=== PATIENT | female | born 1950 | race American Indian/Alaskan Native ===

== ENCOUNTER 2016-09-10 11:49 | Outpatient (CLI) | payer MEDICARE, OTHER ==
[2016-09-10] MEDS ORDERED: NACL ONE (13:36)
[2016-09-10 13:45] LABS: Blood Urea Nitrogen 22 mg/dL (7-17)
--- NOTE | 2016-09-10 15:08 | Cat Scan Report ---
CT NECK WITH AND WITHOUT CONTRAST: HISTORY: Cervical lymphedema, lymphadenopathy. TECHNIQUE: Helical CT following IV contrast. Sagittal and coronal reformatted images. FINDINGS: The parotid and submandibular glands are normal. The carotid sheaths are intact. There is no evidence of adenopathy within the neck. The thyroid gland is normal. The glottic structures are normal. The airway is patent. Strap musculature is unremarkable. Hyoid bone and thyroid cartilage are intact. Moderate multilevel degenerative disc disease is noted throughout the cervical spine. IMPRESSION: Unremarkable CT neck. No lymphadenopathy or lymphedema is appreciated.
--- NOTE | 2016-09-10 15:10 | Cat Scan Report ---
CT HEAD WITH AND WITHOUT CONTRAST: HISTORY: Cervical lymphedema, lymphadenopathy. Serial contiguous axial images were obtained through the cranium, both before and after the administration of intravenous contrast material. The ventricles are normal in size and appearance. There is no mass effect or midline shift. No areas of abnormally increased or decreased attenuation are seen. No mass lesion is seen. The mastoid air cells and visualized portions of the sinuses are normal. IMPRESSION: Cranial CT scan within normal limits.
== END 2016-09-10 11:50 | disposition home or self-care (01) ==
LOC: CT 11:49
PROVIDERS: ATTEND Internal Medicine
DX: M50.30 Other cervical disc degeneration, unspecified cervical region (principal); R59.0 Localized enlarged lymph nodes; R59.1 Generalized enlarged lymph nodes
CPT/HCPCS: 36415; 70470; 70492; 82565; 84520; Q9967

== ENCOUNTER 2016-12-03 10:02 | Outpatient (CLI) | payer MEDICARE, OTHER ==
--- NOTE | 2016-12-03 10:56 | Mammography Report ---
BONE DENSITY STUDY: Postmenopausal osteoporosis. DEFINITIONS: BMD = Bone Mineral Density T-score = BMD related to mean peak bone mass of young adult (mean expressed in Standard Deviation) Z-score = Age matched BMD expressed in SD World Health Organization (WHO) Diagnostic Criteria Normal T-score > -1 SD Osteopenia T-score between -1 and -2.4 SD Osteoporosis T-score -2.5 SD or below FINDINGS: The weighted average BMD of lumbar spine L1-L4 is 1.026 with a T-score of -0.2. The weighted average BMD of hip is 0.803 with a T-score of -1.1 and. IMPRESSION: The patient's average T-score is diagnostic for osteopenia and average relative risk for fracture. NOTE: BMD is not the only risk factor for fracture; also consider factors such as the patient's age, risk of falling, previous osteoporotic fracture, family history of osteoporotic fractures, current smoker, and low body weight. Green's triangle is a region of interest in femur, predominantly of trabecular bone. It is not a true anatomic site, and [facility] does not recommend its use clinically.
== END 2016-12-03 10:03 | disposition home or self-care (01) ==
LOC: MAMMO 10:02
PROVIDERS: ATTEND Internal Medicine
DX: M85.88 Other specified disorders of bone density and structure, other site (principal); Z78.0 Asymptomatic menopausal state
CPT/HCPCS: 77080

== ENCOUNTER 2017-04-16 07:00 | Outpatient (CLI) | payer MEDICARE, OTHER ==
--- NOTE | 2017-04-16 07:45 | Mammography Report ---
Bilateral mammogram: Compared to the. CAD study utilized. Findings: Predominance adipose tissue bilaterally. No mass or microcalcification. Benign density right breast. Benign calcifications left breast. Impression: Benign findings. Annual followup recommended. BI-RADS CATEGORY: 2 = Benign ACR BI-RADS MAMMOGRAPHIC CODES: 0 = Needs additional imaging evaluation; 1 = Negative; 2 = Benign; 3 = Probably benign; 4 = Suspicious; 5 = Malignant; 6 = Known biopsy-proven malignancy COMMENT: 1. Dense breast tissue, i.e., adenosis, fibrocystic changes, etc., may obscure an underlying neoplasm. 2. Approximately 10% of cancers are not detected with mammography. 3. A negative mammography report should not delay biopsy if a clinically suspicious mass is present. COMMENT: Patient follow-up letters are generated in [employer].
== END 2017-04-16 07:01 | disposition home or self-care (01) ==
LOC: MAMMO 07:00
PROVIDERS: ATTEND Internal Medicine
DX: Z12.31 Encounter for screening mammogram for malignant neoplasm of breast (principal)
CPT/HCPCS: 77067; G0202

== ENCOUNTER 2018-12-15 09:15 | Outpatient (CLI) | payer MEDICARE, OTHER ==
--- NOTE | 2018-12-15 11:09 | XRay Report ---
METASTATIC BONE SURVEY HISTORY: Monoclonal paraproteinemia COMPARISON: None at this facility. FINDINGS: Multiple radiographs of the axial and proximal appendicular skeleton were obtained. Mild osteopenia i s suspected. There is mild scoliosis of the thoracolumbar spine with diffuse degenerative changes. Fu casey of the C4-5 disc space is also noted. No areas of abnormal bony destruction or production are id entified throughout the visualized skeleton. IMPRESSION: No lytic or blastic bony lesions are identified on skeletal survey. Signer Name: Ronald Sanchez Jr, MD Signed: 12/15/2018 11:05 AM Workstation Name: [id number]
--- NOTE | 2018-12-15 11:40 | Mammography Report ---
DEXA BONE DENSITY SCAN INDICATION: Z13.820, postmenopausal female COMPARISON: None available. LUMBAR SPINE (L1-L4): Bone mineral density (BMD) is 0.988 g/cm2. T-score is -0.5 (standard deviations of Young Adult mean). Z-score is 0.9 (standard deviations of Age Matched mean). LEFT FEMORAL NECK: Bone mineral density (BMD) is 0.789 g/cm2. T-score is -1.3 (standard deviations of Young Adult mean). Z-score is -0.4 (standard deviations of Age Matched mean). IMPRESSION: 1. WHO Classification: Osteopenia. Fracture Risk: Increased. Signer Name: Eh Thomason MD Signed: 12/15/2018 11:36 AM Workstation Name: [id number]
== END 2018-12-15 09:16 | disposition home or self-care (01) ==
LOC: MAMMO 09:15
PROVIDERS: ATTEND Internal Medicine Hematology & Oncology
DX: Z13.820 Encounter for screening for osteoporosis (principal); M85.88 Other specified disorders of bone density and structure, other site; M41.85 Other forms of scoliosis, thoracolumbar region; M43.22 Fusion of spine, cervical region; M47.815 Spondylosis without myelopathy or radiculopathy, thoracolumbar region; Z78.0 Asymptomatic menopausal state
CPT/HCPCS: 77074; 77080

== ENCOUNTER 2019-05-03 07:02 | Outpatient (CLI) | payer MEDICARE, OTHER ==
--- NOTE | 2019-05-03 09:01 | Mammography Report ---
DIGITAL SCREENING MAMMOGRAM WITH CAD, 05/03/2019 INDICATION: Routine screening mammography. TECHNIQUE: Digital bilateral 2D mammography was obtained in the craniocaudal and mediolateral obliq ue projections. This examination was interpreted with the benefit of Computer-Aided Detection analysi s. COMPARISON: 04/30/2018 and 04/15/2016 FINDINGS: Breast Density: The breasts are almost entirely fatty. There is no evidence of dominant mass, suspicious calcifications or architectural distortion in eithe r breast. IMPRESSION: No mammographic evidence of malignancy. Follow up recommendation: Routine yearly BI-RADS Category 1: Negative. A "normal" or negative report should not discourage follow up or biopsy of a clinically significant f inding. A written summary of these findings will be mailed to the patient. The patient will be entered into a mammography reporting system which will generate a reminder letter for the patient's next appointmen t at the appropriate interval. The [employer] recommends yearly mammograms starting at age 40 and continuing as l cr as a woman is in good health. Breast MRI is recommended for women with an approximate 20-25% or greater lifetime risk of breast cancer, including women with a strong family history of breast or ova dameon cancer or who have been treated for Hodgkin's disease. Signer Name: Mann Rea MD Signed: 05/03/2019 8:56 AM Workstation Name: [id number]
== END 2019-05-03 07:03 | disposition home or self-care (01) ==
LOC: MAMMO 07:02
PROVIDERS: ATTEND Internal Medicine
DX: Z12.31 Encounter for screening mammogram for malignant neoplasm of breast (principal)
CPT/HCPCS: 77067

== ENCOUNTER 2020-05-04 09:53 | Outpatient (CLI) | payer MEDICARE, OTHER ==
--- NOTE | 2020-05-04 11:17 | Mammography Report ---
DIGITAL SCREENING MAMMOGRAM WITH CAD, 05/04/2020 CLINICAL INFORMATION / INDICATION: Routine screening mammography. SCREENING MAMMOGRAM TECHNIQUE: Digital bilateral 2D mammography was obtained in the craniocaudal and mediolateral obliqu e projections. This examination was interpreted with the benefit of Computer-Aided Detection analysis . COMPARISON: 04/16/2017 through 05/03/2019. FINDINGS: Breast Density: The breasts are almost entirely fatty. No dominant mass, suspicious calcifications, or architectural distortion in either breast. A small benign nodule in the right breast superomedially is stable. There are a few benign calcificat ions bilaterally. No new abnormality is seen. IMPRESSION: No mammographic evidence of malignancy. Follow up recommendation: Routine yearly BI-RADS Category 2: Benign. A "normal" or negative report should not discourage follow up or biopsy of a clinically significant f inding. A written summary of these findings will be mailed to the patient. The patient will be entered into a mammography reporting system which will generate a reminder letter for the patient's next appointmen t at the appropriate interval. The [employer] recommends yearly mammograms starting at age 40 and continuing as l cr as a woman is in good health. Breast MRI is recommended for women with an approximate 20-25% or greater lifetime risk of breast cancer, including women with a strong family history of breast or ova dameon cancer or who have been treated for Hodgkin's disease. Signer Name: Isai Caraballo MD Signed: 05/04/2020 11:12 AM Workstation Name: [id number]
== END 2020-05-04 09:54 | disposition home or self-care (01) ==
LOC: MAMMO 09:53
PROVIDERS: ATTEND Internal Medicine
DX: Z12.31 Encounter for screening mammogram for malignant neoplasm of breast (principal)
CPT/HCPCS: 77067

== ENCOUNTER 2021-05-07 08:13 | Outpatient (CLI) | payer MEDICARE, OTHER ==
--- NOTE | 2021-05-07 09:08 | Mammography Report ---
DIGITAL SCREENING MAMMOGRAM WITH CAD, 05/07/2021 CLINICAL INFORMATION / INDICATION: Routine screening mammography. SCREENING MAMMOGRAM TECHNIQUE: Digital bilateral 2D mammography was obtained in the craniocaudal and mediolateral obliqu e projections. This examination was interpreted with the benefit of Computer-Aided Detection analysis . COMPARISON: 03/10/2012 through 05/04/2020. FINDINGS: Breast Density: The breasts are almost entirely fatty. No dominant mass, suspicious calcifications, or architectural distortion in either breast. There are benign calcifications bilaterally. A small benign-appearing nodule in the right medial twin st is stable. IMPRESSION: No mammographic evidence of malignancy. Follow up recommendation: Routine yearly BI-RADS Category 2: BENIGN. A "normal" or negative report should not discourage follow up or biopsy of a clinically significant f inding. A written summary of these findings will be mailed to the patient. The patient will be entered into a mammography reporting system which will generate a reminder letter for the patient's next appointmen t at the appropriate interval. The [employer] recommends yearly mammograms starting at age 40 and continuing as l cr as a woman is in good health. Breast MRI is recommended for women with an approximate 20-25% or greater lifetime risk of breast cancer, including women with a strong family history of breast or ova dameon cancer or who have been treated for Hodgkin's disease. Signer Name: Isai Caraballo MD Signed: 05/07/2021 9:03 AM Workstation Name: [id number]
== END 2021-05-07 08:14 | disposition home or self-care (01) ==
LOC: MAMMO 08:13
PROVIDERS: ATTEND Internal Medicine
DX: Z12.31 Encounter for screening mammogram for malignant neoplasm of breast (principal)
CPT/HCPCS: 77067